=== PATIENT | male | born 1985 | race Caucasian/White ===

== ENCOUNTER 2016-11-26 17:37 | Emergency (ER) | payer BC ==
[~2016-11-26] VITALS: Ht 167.6 cm; Wt 68.0 kg
[2016-11-26 20:45] VITALS: BP 134/68
[2016-11-26] MEDS ORDERED: IBUPROFEN 600MG TABLET PO ONE (20:45)
== END 2016-11-26 21:15 | disposition home or self-care (01) ==
LOC: ER 20:52
DX: G44.209 Tension-type headache, unspecified, not intractable (principal); V49.9XXA Car occupant (driver) (passenger) injured in unspecified traffic accident, initial encounter; Y93.89 Activity, other specified; Y92.89 Other specified places as the place of occurrence of the external cause; Y99.8 Other external cause status
CPT/HCPCS: 99282

== ENCOUNTER 2017-04-28 00:13 | Emergency (ER) | payer BC ==
[~2017-04-28] VITALS: Ht 182.9 cm; Wt 75.0 kg
[2017-04-28] MEDS ORDERED: IBUPROFEN 600MG TABLET PO ONE (05:00)
[2017-04-28] MEDS ORDERED: TETANUS, DIPHTHERIA, PERTUSSIS VAC/PF 0.5ML (>7YR OLD) IM ONE (05:00)
[2017-04-28 06:03] VITALS: BP 109/74
== END 2017-04-28 06:07 | disposition home or self-care (01) ==
LOC: ER 03:25
DX: S61.012A Laceration without foreign body of left thumb without damage to nail, initial encounter (principal); X58.XXXA Exposure to other specified factors, initial encounter; Y93.89 Activity, other specified; Y92.89 Other specified places as the place of occurrence of the external cause; Y99.8 Other external cause status
CPT/HCPCS: 12001; 90471; 90715; 99283; X7700; Z7610